=== PATIENT | female | born 2000 ===

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

== ENCOUNTER 2018-01-09 15:43 | Emergency (ER) | payer BC ==
[2018-01-09 16:05] VITALS: BP 99/53
--- NOTE | 2018-01-09 16:19 | UC ---
Lower Extremity/Ankle HPI - HPI Summary HPI Summary: Pt c/o right great toe pain, swelling and pain with weight bearing after having foot stepped on while playing soccer yesterday for [employer]. - History of Current Complaint Chief Complaint: UCLowerExtremity Stated Complaint: RIGHT FOOT INJURY Time Seen by Provider: 01/09/18 16:06 Hx Obtained From: Patient Hx Last Menstrual Period: 12/21/17 ?: No Onset/Duration: Sudden Onset, Still Present, Worse Since - onset Severity Initially: Mild Severity Currently: Moderate Pain Intensity: 7 Aggravating Factor(s): Standing, Ambulation Alleviating Factor(s): Rest Able to Bear Weight: Yes - minimal - Risk Factors Gout Risk Factors: Negative DVT Risk Factors: Negative Septic Arthritis Risk Factor: Negative - Allergies/Home Medications Allergies/Adverse Reactions: Allergies Allergy/AdvReac Type Severity Reaction Status Date / Time No Known Allergies Allergy Verified 01/09/18 16:05 Home Medications: Home Medications Naproxen Sodium [Aleve] 220 mg PO DAILY 01/09/18 [History Confirmed 01/09/18] PMH/Surg Hx/FS Hx/Imm Hx Previously Healthy: Yes - Surgical History Surgical History: None - Family History Known Family History: Positive: None - Pt deneis FMHX, Cardiac Disease - Social History Occupation: Student Lives: Dormitory/Roommates Alcohol Use: Occasionally Substance Use Type: None Smoking Status (MU): Never Smoked Tobacco Have You Smoked in the Last Year: No - Immunization History Vaccination Up to Date: Yes Review of Systems Constitutional: Negative Skin: Bruising Eyes: Negative ENT: Negative Respiratory: Negative Cardiovascular: Negative Gastrointestinal: Negative Genitourinary: Negative Motor: Decreased ROM - right great toe Neurovascular: Negative Musculoskeletal: Arthralgia, Decreased ROM, Edema, Myalgia Neurological: Negative Psychological: Negative Is Patient Immunocompromised?: No All Other Systems Reviewed And Are Negative: Yes Physical Exam Triage Information Reviewed: Yes Appearance: Well-Appearing Vital Signs: Initial Vital Signs Temp 98.4 F 01/09/18 15:59 Pulse 58 01/09/18 15:59 Resp 16 01/09/18 15:59 BP 99/53 01/09/18 15:59 Pulse Ox 99 01/09/18 15:59 Vital Signs Reviewed: Yes Eye Exam: Normal ENT: Positive: Hearing grossly normal Dental Exam: Normal Neck exam: Normal Respiratory: Positive: No respiratory distress Musculoskeletal Exam: Other Musculoskeletal: Positive: Strength Limited @ - right mid foot and great toe, ROM Limited @ - right mid foot and great toe, Edema @ - right mid foot and great toe Neurological Exam: Normal Psychological Exam: Normal Skin Exam: Other - bruising, right great toe Diagnostics - Laboratory Diagnostic Studies Completed/Ordered: IMPRESSION: No fracture of the right foot is noted. - Radiology No standard instances Radiology Interpretation Completed By: Radiologist - IMPRESSION: No fracture of the right foot is noted. Lower Extremity Course/Dx - Differential Dx/Diagnosis Differential Diagnosis/HQI/PQRI: Contusion, Fracture (Closed), Sprain, Strain Provider Diagnoses: right foot contusion. right great toe contusion Discharge - Sign-Out/Discharge Documenting (check all that apply): Patient Departure All imaging exams completed and their final reports reviewed: Yes - Discharge Plan Condition: Stable Disposition: HOME Patient Education Materials: Foot Contusion (ED), R.I.C.E. Treatment (ED) Forms: *Physical Education Release Referrals: [facility] [Outside] - If Needed Dandy Lockett MD [Medical Doctor] - If Needed No Primary Care Phys,NOPCP [Primary Care Provider] - Jl Manjarrez MD [Medical Doctor] - - Billing Disposition and Condition Condition: STABLE Disposition: Home
--- NOTE | 2018-01-09 16:38 | RAD ---
Indication: Right foot pain. 3 views of the right foot demonstrates no fracture. No other bone or joint abnormality is identified. IMPRESSION: No fracture of the right foot is noted.
== END 2018-01-09 16:49 | disposition home or self-care (01) ==
LOC: UCCORT 15:43
DX: S90.111A Contusion of right great toe without damage to nail, initial encounter (principal); S90.31XA Contusion of right foot, initial encounter; W22.8XXA Striking against or struck by other objects, initial encounter; Y93.66 Activity, soccer; Y92.9 Unspecified place or not applicable
CPT/HCPCS: 99212; G0463